=== PATIENT | male | born 1990 | race Caucasian/White ===

== ENCOUNTER 2022-01-30 12:14 | Day surgery (SDC) | payer OTHER ==
[~2022-01-30 12:14] MED LIST: BRIMONIDINE 0.2% OPHTH DROPS 5 ML ONE; BSS/LIDOCAINE/EPINEPHRINE 1 ML VIAL ONE; EPINEPHrine 1 MG/ML AMP ONE; TIMOLOL 0.5% OPHTH DROPS ONE; TRIAMCIN/MOXIFLOX OPHTHALMIC 0.6 ML VIAL IO ONE
[2022-01-30] MEDS ORDERED: LACTATED RINGERS 1,000 ML IV ONE ×2 (12:59→15:41)
--- NOTE | 2022-01-30 13:12 | ANESTHESIA ---
Pre-Anesthesia VS, & Labs - Diagnosis Back lipoma. 3cm - Procedure Excision Lipoma, Back Vital Signs: Temp Pulse Resp BP Pulse Ox 36.9 C 61 16 130/73 99 01/30/22 12:39 01/30/22 12:39 01/30/22 12:39 01/30/22 12:39 01/30/22 12:39 Height: 5 ft 7 in Weight (kg): 72.3 kg Body Mass Index: 25.0 BMI Classification: Overweight - NPO >8 hours Home Medications and Allergies Home Medications: Ambulatory Orders No Known Home Medications 01/20/22 No Known Home Medications 01/20/22 Allergies/Adverse Reactions: Allergies Allergy/AdvReac Type Severity Reaction Status Date / Time No Known Drug Allergies Allergy Verified 01/20/22 15:23 Anes History & Medical History - Anesthetic History Anesthesia Complications: reports: No previous complications Family history of Anesthesia Complications: Denies Family history of Malignant Hyperthermia: Denies - Medical History Cardiovascular: reports: None Pulmonary: reports: None Gastrointestinal: reports: None Urinary: reports: None Neuro: reports: None Musculoskeletal: reports: None Endocrine/Autoimmune: reports: None Skin: reports: None Smoking Status: Former smoker Psychosocial: reports: Alcohol History of Cancer?: No Exam General: Alert, Oriented x3 Dental: WNL Mouth Opening: Greater than 4 Fingerbreadths Neck Mobility: Normal Mallampati classification: I Thyromental Distance: 4-6 cm Respiratory: Lungs clear Cardiovascular: Regular rate Mental/Cognitive Status: Alert/Oriented X3, Normal for patient Cognitive Status: Within normal limits Plan Anesthesia Type: Total IV Consent for Procedure(s) Verified and Reviewed: Yes Code Status: Attempt Resuscitation ASA classification: 1-Healthy patient Is this case an emergency?: No
[2022-01-30] MEDS ORDERED: LIDOCAINE 2%-EPI 1:100000 20 ML MDV ONE (13:42)
[2022-01-30] MEDS ORDERED: BUPIVACAINE 0.25% PF 10 ML VIAL ONE (13:42)
[2022-01-30] MEDS ORDERED: KETAMINE 500 MG/10 ML VIAL ONE (14:18)
[2022-01-30] MEDS ORDERED: SODIUM CHLORIDE 0.9% 10 ML VIAL IVP ONE (14:20)
[2022-01-30] MEDS ORDERED: MIDAZOLAM 2 MG/2 ML VIAL ONE (14:21)
[2022-01-30] MEDS ORDERED: PROPOFOL 500 MG/50 ML 500 MG/50 ML VIAL ONE (14:38)
[2022-01-30] MEDS ORDERED: ACETAMINOPHEN 1,000 MG/100 ML 100 ML IV ONE (14:39)
--- NOTE | 2022-01-30 14:43 | HISTORY & PHYSICAL EXAMINATION ---
Chief Complaint - Chief Complaint Chief Complaint: lump left lower back History of Present Illness - History Obtained From Records Reviewed: yes History obtained from: pt Exam Limitations: none - History of Present Illness HPI Comment/Other: growing and now painful lump left lower back History - Past Medical History Cardiovascular: reports: None Respiratory: reports: None Neuro: reports: None Endocrine/Autoimmune: reports: None GI: reports: None : reports: None HEENT: reports: Chronic vision loss Psych: reports: None Musculoskeletal: reports: None Derm: reports: None MRSA Hx?: No Meds/Allgy - Home Medications Home Medications: Ambulatory Orders Medication Instructions Recorded Confirmed No Known Home Medications 01/20/22 01/20/22 - Allergies Allergies/Adverse Reactions: Allergies Allergy/AdvReac Type Severity Reaction Status Date / Time No Known Drug Allergies Allergy Verified 01/20/22 15:23 Review of Systems - Other Findings Other Findings: 10 pt ros as above otherwise unremarkable Exam - Vital Signs Reviewed Vital Signs: Yes Vital Signs: Vital Signs x48h Temp Pulse Resp BP Pulse Ox 01/30/22 12:39 36.9 C 61 16 130/73 99 - Physical Exam General Appearance: positive: No acute distress, Alert Eyes Bilateral: positive: PERRL, EOMI, No scleral icterus ENT: positive: No signs of dehydration Neck: positive: No JVD, Trachea midline Respiratory: positive: No respiratory distress, Breath sounds nml Cardiovascular: positive: Regular rate & rhythm Abdomen: positive: Non-tender, No distention Back: positive: Other (3 cm lipoma left lower back) Neurologic/Psychiatric: positive: Oriented x3 Conclusion/Plan - Problem List (1) Lipoma of lower back Conclusion/Plan: plan excision. parq held and consent obtained
[2022-01-30] MEDS ORDERED: HYDROcod/ACETAM 5/325 MG TABLET PO PRN (15:40)
[2022-01-30] MEDS ORDERED: BUPIVACAINE 0.25% PF 10 ML VIAL SUBQ ONE (15:42)
[2022-01-30] MEDS ORDERED: LIDOCAINE 2%-EPI 1:100000 20 ML MDV SUBQ ONE (15:42)
--- NOTE | 2022-01-30 15:44 | ANESTHESIA POST OP EVALUATION ---
Anesthesia Post Eval - Post Anesthesia Eval Vitals: Last Vital Signs Temp 36.8 C 01/30/22 15:41 Pulse 54 L 01/30/22 15:41 Resp 14 01/30/22 15:41 BP 125/85 H 01/30/22 15:41 Pulse Ox 99 01/30/22 15:41 CV Function Including HR & BP: Stable Pain Control: Satisfactory Nausea & Vomiting: Negative Mental Status: Baseline Respiratory Status: Airway Patent Hydration Status: Satisfactory Anesthesia Complications: None
--- NOTE | 2022-01-30 15:48 | OPERATIVE REPORT ---
Operative Report - General Procedure Date: 01/30/22 Planned Procedure: excision 3 cm left lower back lipoma 3 cm intermediate repair Pre-Op Diagnosis: symptomatic back lipoma Procedure Performed: excision back lipoma 3 cm intermediate repair Post Op Diagnosis: same - Procedure Note Primary Surgeon: dianne winkler Anesthesia Technique: Local, MAC Pathology: benign not sent Estimated Blood Loss (mL): 0 Drain/Tube Type: Other (none) Indications: growing and painful back lipoma Findings: as above Complications: none - Other Other Information/Narrative: The patient was properly identified brought to the operating room and placed in supine position. Monitored anesthesia care and IV sedation was given. He was carefully repositioned right lateral decubitus. He was prepped and draped in a sterile fashion. Antibiotics were not given. Local anesthetic was given. A curvilinear incision was made within a tattoo. The lipoma was removed in its entirety with gentle retraction and Metzenbaums scissors. Hemostasis was assured. Intermediate repair was then performed. Subcutaneous tissue was closed with interrupted 3-0 Vicryl suture. Buried interrupted subdermal 3-0 Vicryl sutures were then placed skin was closed with a running 4-0 Monocryl subcuticular suture. Dressing was applied. He tolerated the procedure well.
[2022-01-30 16:03] VITALS: BP 138/94
== END 2022-01-30 12:15 | disposition home or self-care (01) ==
LOC: SDS 12:14
PROVIDERS: ATTEND Surgery
DX: D17.1 Benign lipomatous neoplasm of skin and subcutaneous tissue of trunk (principal); H54.7 Unspecified visual loss
CPT/HCPCS: 21931; J0131; J7120

== ENCOUNTER 2022-10-08 15:05 | Outpatient (CLI) | payer OTHER ==
[2022-10-08 15:41] VITALS: BP 120/80
--- NOTE | 2022-10-08 15:41 | SLEEP CARE CONSULTATION ---
Information from patient questionnaire entered by Catie Adams. I have reviewed and concur with the information entered by Catie Adams. This document represents the service I personally performed and the decisions made by me, Victoria Adams ARNP. History of Present Illness Service Date and Time: 10/08/2022 1500 Reason for Visit: New patient Chief Complaint: reports: Snoring, Excessive daytime sleepiness, Frequent awakenings at night Date of Onset: 2YRS Usual bedtime: 8082-4135 Time it takes to fall asleep: 5-15 Snores at night: Yes Observed to quit breathing while asleep: No Sleeps alone due to snoring: Yes Number of times waking at night: 2-5 Reasons for waking at night: reports: Choking, Snoring, Other (UNKNOWN) Toss, Turn, or Twitch while sleeping: Yes Recalls having dreams: Yes (has very vivid dreams occasionally) Usually gets out of bed at: [id number] Feels refreshed in the morning: No Morning headache: No Sleepy or fatigued during the day: Yes Ever fallen asleep while driving: Yes (some drowsy driving; no accidents) Takes day naps: Yes (2-3 times a week, more on weekends) Dreams during day naps: Yes Prior sleep studies: No Additional HPI information: I had the pleasure of seeing KRIS CELESTIN today regarding the possibility of him having a sleep disorder. His current complaints are snoring, excessive daytime sleepiness and frequent night awakenings. He states for the last 1-1.5 years he wakes up tired despite getting enough hours of sleep. His is complaining of very loud snoring and is waking him up to change positions. He is sometimes sleeping separate due to the snoring. He states sometimes he will wake himself up snoring and he has also woke up feeling like he is choking. He does not wake up feeling rested and is tired throughout the day. His is encouraging him to get checked out. - Parasomnia Symptoms Ever been unable to move upon waking from sleep: No Walks in sleep: No Talks in sleep: Yes Ever acted out dreams in sleep: Yes (kicking sometimes, arms flailing too) Ever felt weak in the knees when startled or emotional: No Bothered by creepy, crawly, restless sensations in legs: Yes (sometimes, legs feel tingly when laying down; 1x a month) Problems with memory or concentration: Yes (more memory) Subjective Initial [place] Sleepiness Scale score: 12 (10/01/22) Past Medical History Past Medical History: reports: Other (no significant history) Social History The patient's occupation is a AM. Patient is and lives in [place]. Have you smoked in the past 12 months: No Years of smokin Quit date: 2015 Alcohol use: Yes Alcohol amount and frequency: 1-3 3-4 X WEEK Caffeine use: Yes Caffeine amount and frequency: 10OZ COFFEE EVERY MORNING CYLCE PRE WORKOUT EVERY 6 MONTHS Family History Family history of sleep disordered breathing: Yes Family Hx Sleep Apnea: Father: Snoring, Sibling: Snoring Allergies and Home Medications Known drug allergies: No Drug allergies reviewed: Yes Home medication list reviewed: Yes Allergy and home medication list: Medications: Men's MVT Glucosamine Fish oil Review of Systems Weight gain over past 5 years: 10; trying to gain muscle weight Cardiovascular: denies: high blood pressure Gastrointestinal: denies: heartburn Neurological: denies: headaches, head trauma Psychiatric: denies: anxiety, depression Ear/Nose/Throat: reports: nasal congestion, wisdom teeth removed. denies: tonsillectomy Immunologic: reports: allergies to food or environment Physical Exam Vital signs obtained and entered by: CATIE Bond MA Blood Pressure: 120/80 (LEFT ARM) Cuff size: regular Heart Rate: 71 O2 Saturation: 96 Height: 5 ft 7 in Weight: 171 lb Body Mass Index: 26.7 BMI Classification: Overweight Neck circumference: 14.25 Mouth and throat: narrow oropharynx Soft palate: long Hard palate: normal Uvula: normal Uvula visualization: 50% Mallampati Class II Tongue: normal in size Tonsils: small Neck: normal w/o lymphadenopathy or thyromegaly Heart: regular rate and rhythm Lungs: clear bilaterally Impression and Plan 1. Suspected Obstructive Sleep Apnea-Hypopnea Syndrome, as suggested by a history of loud and irregular snoring, gasping or choking in sleep, frequent awakening during the night, unrefreshed sleep, cognitive impairment, and excessive daytime sleepiness. Narrow oropharynx and obesity are common predisposing factors for obstructive sleep apnea-hypopnea syndrome. I recommend proceeding to polysomnography to confirm the diagnosis and to assess severity. If the patient has significant sleep disordered breathing, a manual CPAP titration study will also be performed to find the optimal treatment pressure. I informed the patient of what the sleep studies involve and after some discussion, obtained agreement to proceed. The pathophysiology of obstructive sleep apnea-hypopnea syndrome was discussed with the patient and health risks of cardiovascular and cerebrovascular disease if not treated. 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 Patient agreed to plan. * Schedule polysomnography * Avoid long distance driving or driving when feeling sleepy. * Avoid alcohol, sedative and muscle relaxant around bedtime. * Maintain a healthy weight. * Review instructions provided by trained office staff on how to prepare for the sleep study. * Return for follow-up after sleep study completed. Counseling Topics: Weight control Visit Type: In Office Time Spent with Patient (minutes): 30 Provider Statement: I spent 100% of the Face to Face Visit with the patient with greater than 50% spent counseling the patient and coordination of care.
== END 2022-10-08 15:06 | disposition home or self-care (01) ==
LOC: SC 15:05
PROVIDERS: ATTEND Nurse Practitioner Family
DX: R06.83 Snoring (principal); G47.8 Other sleep disorders; G47.10 Hypersomnia, unspecified; E66.3 Overweight; Z68.27 Body mass index [BMI] 27.0-27.9, adult; Z87.891 Personal history of nicotine dependence
CPT/HCPCS: 99203; 99212

== ENCOUNTER 2022-11-04 19:34 | Outpatient (CLI) | payer OTHER | END 2022-11-04 19:35 | disposition home or self-care (01) | LOC: SC 19:34 | PROVIDERS: ATTEND Nurse Practitioner Family | DX: G47.8 Other sleep disorders (principal) | CPT/HCPCS: 95810 ==

== ENCOUNTER 2022-11-10 11:30 | Outpatient (CLI) | payer OTHER ==
[2022-11-10 12:18] VITALS: BP 110/66
--- NOTE | 2022-11-10 12:18 | SLEEP CARE CONSULTATION ---
Information from patient questionnaire entered by Catie Adams. I have reviewed and concur with the information entered by Catie Adams. This document represents the service I personally performed and the decisions made by me, Mehdi Griffin MD, [facility]. History of Present Illness Service Date and Time: 11/10/2022 1130 Initial [place] Sleepiness Scale score: 12 (10/01/22) Current [place] Sleepiness Scale score: 13 (11/10/22) Additional HPI information: HPI: Mr. Granda returned for follow up of the sleep study he had on 11/04/2022. The polysomnography showed that the patient had slightly reduced sleep efficiency due to a prolonged awakening in the middle of the night. The sleep architecture was abnormal for sleep fragmentation and reduced amount of time spent in slow wave sleep (N3). Respiratory monitoring showed evidence of upper airway resistance (AHI = 0.9; RDI = 10.8) associated with frequent arousals, but not hypoxia (andrzej oxygen saturation of 91%). The respiratory events occurred almost exclusively during supine sleep (supine AHI = 1.5; non-supine = 0.30). Snore was moderate to loud in intensity. There was no significant periodic leg movement of sleep. Cardiac rhythm was normal sinus rhythm without significant arrhythmia. No abnormal behavior (parasomnia) observed during the night. The patient was informed of these findings. I explained to him the pathophysi ology behind upper airway resistance syndrome and different treatment options. The patient would like to try a CPAP because he has many coworkers that recommend it. Sleep Study - Results Type of Sleep Study: Polysomnography (COMPLETED 11/04/22) Prior sleep studies: No Allergies and Home Medications Drug allergies reviewed: Yes Home medication list reviewed: Yes Allergy and home medication list: Allergies No Known Drug Allergies Allergy (Verified 10/08/22 15:14) Review of Systems Review of systems same as previous: Yes Physical Exam Vital signs obtained and entered by: CATIE Bond MA Blood Pressure: 110/66 (LEFT ARM) Cuff size: regular Heart Rate: 68 O2 Saturation: 99 Height: 5 ft 7 in Weight: 167 lb 6.4 oz Body Mass Index: 26.2 BMI Classification: Overweight Impression and Plan IMPRESSION: 1. Upper airway resistance syndrome, possibly causing the patients symptoms of unrefreshed sleep, and excessive daytime sleepiness. As mentioned above, the patient will be started on an autoCPAP set between 5 and 15 cmH2O. PLAN: 1. Prescription made for an autoCPAP, heated humidifier, and related supplies. 2. Return for follow up after one month of using the CPAP. Prescriptions: Auto CPAP Follow up with Sleep Care in: 1-2 months Visit Type: In Office Time Spent with Patient (minutes): 15 Provider Statement: I spent 100% of the Face to Face Visit with the patient with greater than 50% spent counseling the patient and coordination of care.
== END 2022-11-10 11:31 | disposition home or self-care (01) ==
LOC: SC 11:30
PROVIDERS: ATTEND Internal Medicine Pulmonary Disease
DX: G47.8 Other sleep disorders (principal)
CPT/HCPCS: 99212